=== PATIENT | female | born 1950 | race Two or more races ===

== ENCOUNTER 2016-07-29 22:44 | Inpatient (IN) | payer BC ==
[~2016-07-29] VITALS: Ht 162.6 cm; Wt 98.4 kg
[2016-07-29] MEDS ORDERED: LORAZEPAM INJ 2 MG/ML VIAL ONE (22:51)
[2016-07-29] MEDS ORDERED: ASPIRIN 81 MG TAB.CHEW PO ONE (23:00)
[2016-07-29] MEDS ORDERED: LORAZEPAM INJ 2 MG/ML VIAL IV ONE (23:00)
--- NOTE | 2016-07-29 23:06 | NUR ---
CALLED [facility]ER[facility] ELLIOTT FOR EKG FROM PREVIOUS VISIT
[2016-07-29 23:08] LABS: BASOPHILS % (AUTO) 0.3 % (0.0-2.0); EOSINOPHILS # (AUTO) 0.1 /CMM (0.0-0.7); EOSINOPHILS % (AUTO) 1.5 % (0.0-6.0); HEMATOCRIT 40 % (33-45); HEMOGLOBIN 13.4 g/dL (11.5-14.8); LYMPHOCYTES # (AUTO) 2.2 /CMM (0.8-4.8); LYMPHOCYTES % (AUTO) 28.4 % (20.0-44.0); MEAN CORPUSCULAR HEMOGLOBIN 31 PG (26.0-33.0); MEAN CORPUSCULAR HGB CONC 34 g/dl (31.0-36.0); MEAN CORPUSCULAR VOLUME 91 fL (82-100); MONOCYTES # (AUTO) 0.5 /CMM (0.1-1.30); MONOCYTES % (AUTO) 6.3 % (2.0-12.0); NEUTROPHILS # (AUTO) 4.9 /CMM (1.8-8.9); NEUTROPHILS % (AUTO) 63.5 % (43.0-81.0); PLATELET COUNT (AUTO) 249 /CMM (150-450); RED BLOOD CELL COUNT(AUTO) 4.37 MIL/uL (4.0-5.2); WHITE BLOOD COUNT (AUTO) 7.8 K/uL (4.3-11.0)
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
[2016-07-29 23:19] LABS: CALCIUM, SERUM 8.6 mg/dL (8.5-10.1); CARBON DIOXIDE 26 mmol/L (21-32); CHLORIDE 104 mmol/L (98-107); CREATININE 1.2 mg/dL (0.6-1.3); GFR 45 mL/min (>60); GLUCOSE 188 mg/dL (74-106); POTASSIUM 3.6 mmol/L (3.5-5.1); SODIUM SERUM 141 mmol/L (136-145); UREA NITROGEN, BLOOD 23 mg/dL (7-18)
--- NOTE | 2016-07-29 23:20 | NUR ---
SPOKE WITH [facility] AT [facility] RELEASE OF MEDICAL RECORDS WAITING FOR CONFIRMATION ON RECEIPT OF FAX
[2016-07-29 23:25] LABS: TROPONIN I < 0.017 ng/mL (0.00-0.056)
--- NOTE | 2016-07-29 23:30 | NUR ---
SPOKE WITH PAR[facility] AT [facility] FOR REQUEST OF MEDICAL RECORDS, RELEASE FAXED OVER AND WAITING FOR FAX BACK
--- NOTE | 2016-07-29 23:58 | NUR ---
CALLED [facility] MEDICAL RECORDS BACK WAS ADVISED [facility] IS CURRENTLY FAXING EKG OVER
--- NOTE | 2016-07-30 02:00 | NUR ---
PT RESTING IN ER BED, NAD NOTED, PT IS ON GARMENT FINISHER, WILL CONTINUE TO MONITOR
[2016-07-30] MEDS ORDERED: UNABLE TO RECALL MED (03:37)
[2016-07-30] MEDS ORDERED: ACETAMINOPHEN 325 MG TABLET PO PRN (04:00)
[2016-07-30] MEDS ORDERED: LORAZEPAM 1 MG TABLET PO PRN (04:00)
[2016-07-30] MEDS ORDERED: NITROGLYCERIN 0.4 MG/TAB BOTTLE SL PRN (04:00)
[2016-07-30] MEDS ORDERED: DOCUSATE SODIUM 100 MG CAPSULE PO PRN (04:00)
[2016-07-30] MEDS ORDERED: MORPHINE SULFATE INJ 2 MG/ML DISP.SYRIN IV PRN ×2 (04:00)
--- NOTE | 2016-07-30 04:00 | NUR ---
REPORT GIVEN TO MEDICAL ILLUSTRATOR FOR NICOLE
[2016-07-30 04:05] VITALS: BP 127/59
--- NOTE | 2016-07-30 04:21 | NUR ---
TELE/RN NOTE: ADMITTED FROM ER, PATIENT STATED, " I HAVE HIGH BLOOD PRESSURE." PATIENT LIVES ALONE, AWAKE, ALERT, ORIENTED X3, DENIES ANY CHEST DISCOMFORT AT THIS TIME, NO APPARENT DISTRESS NOTED. RESPIRATION EVEN, BREATHING PATTERN NON-LABORED, VITALS 129/70, 59, 20, 975 ROOM AIR, 98.6. SKIN WARM, DRY AND INTACT. NO SWELLING NOTED. LAST BOWEL MOVEMENT 07/29, VOIDING FREELY, AMBULATORY. 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 SON WILL BRING MEDICATION LIST IN AM. WILL CONTINUE TO MONITOR.
--- NOTE | 2016-07-30 06:39 | NUR ---
MS/RN NOTE: PATIENT'S SON CALLED, REMINDED HIM TO BRING PATIENT LIST OF MEDICATIONS.
--- NOTE | 2016-07-30 07:30 | NUR ---
LABORATORY ENGINEER OPENING RECEIVED PATIENT A/OX4 DENIES PAIN, SOB, DIFFICULTY BREATHING. PATIENT STATES SHE WANTS TO GO HOME TODAY AND FEELS BETTER. PATIENT UNDERSTANDING THAT FOOD AND BEVERAGE LEAD NEEDS TO CLEAR HER FOR D/C. PATIENT STATES NO OTHER NEEDS AND STABLE AT THIS TIME. TELE SINUS WITH BBB. PATIENT WITH CALL LIGHT IN REACH,BED LOWERED AND LOCKED, RAILS UPX2 FOR SAFETY AND WILL ROUND Q2H OR LESS PER NEEDS
[2016-07-30 08:00] VITALS: BP_SYST 131; BP_SYST 132; BP_DIAS 82
[2016-07-30] MEDS ORDERED: ATEN50TA PO (08:27)
[2016-07-30] MEDS ORDERED: VALS80TA2 PO (08:27)
[2016-07-30] MEDS ORDERED: ASPIRIN 81 MG TAB.CHEW PO SCH (09:00)
[2016-07-30] MEDS ORDERED: CARVEDILOL 6.25 MG TABLET PO SCH (09:00)
[2016-07-30 09:16] VITALS: BP 132/82
--- NOTE | 2016-07-30 10:05 | NUR ---
MS RN NOTES PATIENT AMBULATED WITH NO COMPLICATIONS PER DR GARCIA ORDER. PER DR SHEA GO OK TO DC PATIENT AND PUT IN DC ORDER. ORDER ADDED PER
[2016-07-30 11:09] LABS: THYROID STIMULATING HORMONE 0.556 uIU/mL (0.358-3.74)
[2016-07-30 11:41] LABS: PHOSPHORUS 3.6 mg/dL (2.5-4.9)
--- NOTE | 2016-07-30 11:55 | NUR ---
MS ROLL MILL OPERATOR PATIENT STABLE NO COMPLICATIONS NO CHANGES. PATIENT EDUCATED ON DC MATERIAL AND STATED UNDERSTANDING. DISCHARGED PER MD. ALL BELONGINGS ACCOUNTED FOR AND SIGNED. PATIENT ASSISTED TO CAR BY STAFF AND SON IN STABLE CONDITION. IV REMOVED PRESSURE AND DRESSING APPLIED NO BLEEDING NOTED.
[2016-07-30] MEDS ORDERED: LIDOCAINE 2% JEL UROJET 10 ML MM ONE (12:00)
[2016-07-30] MEDS ORDERED: ASPI81TA2 PO (12:06)
[2016-07-30] MEDS ORDERED: SIMVASTATIN 20 MG TABLET PO SCH (22:00)
== END 2016-07-30 11:55 | disposition home or self-care (01) | DRG 303 ==
LOC: ER 22:47 → TELE 07-30 03:28 → MED 07-30 10:44
PROVIDERS: ADMIT Internal Medicine; ATTEND Internal Medicine
DX: I25.10 Atherosclerotic heart disease of native coronary artery without angina pectoris (principal); E78.5 Hyperlipidemia, unspecified; E66.01 Morbid (severe) obesity due to excess calories; I10 Essential (primary) hypertension; G47.33 Obstructive sleep apnea (adult) (pediatric); G25.81 Restless legs syndrome; E11.9 Type 2 diabetes mellitus without complications; Z68.37 Body mass index [BMI] 37.0-37.9, adult
CPT/HCPCS: 36415; 71010-TC; 80048-TC; 80061-TC; 82306; 83735-TC; 84100-TC; 84439-TC; 84443-TC; 84484-TC; 85025-TC; 87081-TC; A4606; J2060; J3490; Z7610

== ENCOUNTER 2016-09-07 06:19 | Emergency (ER) | payer BC ==
[~2016-09-07] VITALS: Ht 152.4 cm; Wt 90.7 kg
[~2016-09-07 06:19] MED LIST: ASPI81TA2 PO; ATEN50TA PO; VALS80TA2 PO
--- NOTE | 2016-09-07 06:43 | NUR ---
PT PRESENTED TO THE ER AFTER WAKING UP WITH HIGH BP THIS MORNING. PT TOOK ALL HER MEDICATIONS AND FELT THAT SHE SHOULD GO TO THE ER. PT'S BP IS WNL. PT IS AA&O X4. PT AMBULATED TO BED #[address]Y GAIT. [address]. SORIA IS AT THE BEDSIDE.
--- NOTE | 2016-09-07 06:59 | NUR ---
Patient discharged to home in stable condition. Written and verbal after care instructions given. Patient verbalizes understanding of instruction. PT AMBULATED OUT WITH A STEADY GAIT. VSS.
[2016-09-07 07:00] VITALS: BP 145/75
== END 2016-09-07 07:01 | disposition home or self-care (01) ==
LOC: ER 06:23
DX: I10 Essential (primary) hypertension (principal); Z79.82 Long term (current) use of aspirin; F41.0 Panic disorder [episodic paroxysmal anxiety]
CPT/HCPCS: A4606; Z7610

== ENCOUNTER 2016-12-12 10:55 | Emergency (ER) | payer MEDICARE, BC ==
[~2016-12-12] VITALS: Ht 157.5 cm; Wt 90.7 kg
--- NOTE | 2016-12-12 11:05 | NUR ---
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 NOW NO CP, PRESSURE, OR HTN. VSS. NAD NOTED. SKIN WARM NONDIAPHORETIC. RESP EVEN UNLABORED. AMBULATORY WITH STEADY GAIT. IN ER BED 08.
[2016-12-12 11:57] LABS: BASOPHILS # (AUTO) 0.1 /CMM (0.0-0.2); BASOPHILS % (AUTO) 0.8 % (0.0-2.0); EOSINOPHILS # (AUTO) 0.1 /CMM (0.0-0.7); EOSINOPHILS % (AUTO) 1.1 % (0.0-6.0); HEMATOCRIT 40 % (33-45); HEMOGLOBIN 13.2 g/dL (11.5-14.8); LYMPHOCYTES # (AUTO) 1.6 /CMM (0.8-4.8); LYMPHOCYTES % (AUTO) 20.3 % (20.0-44.0); MEAN CORPUSCULAR HEMOGLOBIN 31 PG (26.0-33.0); MEAN CORPUSCULAR HGB CONC 33 g/dl (31.0-36.0); MEAN CORPUSCULAR VOLUME 92 fL (82-100); MONOCYTES # (AUTO) 0.6 /CMM (0.1-1.30); MONOCYTES % (AUTO) 7.6 % (2.0-12.0); NEUTROPHILS # (AUTO) 5.3 /CMM (1.8-8.9); NEUTROPHILS % (AUTO) 70.2 % (43.0-81.0); PLATELET COUNT (AUTO) 262 /CMM (150-450); RDW COEFFICIENT OF VARIATION 11.4 (11.5-15.0); RED BLOOD CELL COUNT(AUTO) 4.32 MIL/uL (4.0-5.2); WHITE BLOOD COUNT (AUTO) 7.7 K/uL (4.3-11.0)
[2016-12-12 12:14] LABS: TROPONIN I < 0.017 ng/mL (0.00-0.056)
[2016-12-12 12:26] LABS: CALCIUM, SERUM 8.8 mg/dL (8.5-10.1); CARBON DIOXIDE 26 mmol/L (21-32); CHLORIDE 107 mmol/L (98-107); CREATININE 0.7 mg/dL (0.6-1.3); GLUCOSE 90 mg/dL (74-106); POTASSIUM 4.4 mmol/L (3.5-5.1); SODIUM SERUM 142 mmol/L (136-145); UREA NITROGEN, BLOOD 16 mg/dL (7-18)
[2016-12-12 12:31] LABS: ALANINE AMINOTRANSFERASE 31 U/L (12-78); ALBUMIN 3.6 g/dL (3.4-5.0); ALKALINE PHOSPHATASE 72 U/L (46-116); ASPARTATE AMINOTRANSFERASE 25 U/L (15-37); BILIRUBIN,DIRECT 0.1 mg/dL (0.0-0.2); BILIRUBIN,TOTAL 0.3 mg/dL (0.2-1.0); TOTAL PROTEIN, SERUM 6.9 g/dL (6.4-8.2)
[2016-12-12 13:26] VITALS: BP 124/64
--- NOTE | 2016-12-12 13:26 | NUR ---
Patient discharged to home in stable condition. Written and verbal after care instructions given. Patient verbalizes understanding of instruction. AMBULATORY WITH STEADY GAIT. NAD NOTED.
== END 2016-12-12 13:27 | disposition home or self-care (01) ==
LOC: ER 10:57
DX: R07.9 Chest pain, unspecified (principal); I10 Essential (primary) hypertension; F41.0 Panic disorder [episodic paroxysmal anxiety]; Z79.82 Long term (current) use of aspirin
CPT/HCPCS: 36415; 80048; 80076; 84484; 85025; 93005; 99285; A4606; Z7610

== ENCOUNTER 2017-03-29 20:50 | Emergency (ER) | payer MEDICARE, BC ==
[~2017-03-29] VITALS: Ht 157.5 cm; Wt 100.2 kg
[~2017-03-29 20:50] MED LIST changes: +ASPI-1169 PO; -ASPI81TA2 PO
--- NOTE | 2017-03-29 21:05 | NUR ---
PT TRIAGED AND THEN AMBULATED TO THE BATHROOM WITH A STEADY GAIT. URINE SAMPLE OBTAINED AND SENT TO LAB. PT THEN AMBULATED TO BED #6. PT WAS PLACED ON THE MONITOR, 20G IV STARTED IN LAC. BLOOD WAS DRAWN AND SENT TO LAB. PT PLACED IN A GOWN. PT'S SON IS AT THE BEDSIDE. PT STATED THAT SHE HAS HAD A BAND OF PRESSURE/TIGHTNESS ACROSS THE UPPER ABD/EPIGASTRIC AREA X3 DAYS. PT STATED THAT HER BP WAS ELEVATED AT HOME. PT TOOK 1/2 XANAX, 325 MG ASPIRIN AND AMLODIPINE LIBRARY CLERICAL ASSISTANT. PT'S BP IS 158/95 NOW. PT IS AA&O X4. RESP EVEN AND UNLABORED.
[2017-03-29 21:12] LABS: BASOPHILS # (AUTO) 0.1 /CMM (0.0-0.2); BASOPHILS % (AUTO) 0.5 % (0.0-2.0); EOSINOPHILS # (AUTO) 0.1 /CMM (0.0-0.7); EOSINOPHILS % (AUTO) 1.1 % (0.0-6.0); HEMATOCRIT 43 % (33-45); HEMOGLOBIN 14.8 g/dL (11.5-14.8); LYMPHOCYTES # (AUTO) 3.5 /CMM (0.8-4.8); LYMPHOCYTES % (AUTO) 33.9 % (20.0-44.0); MEAN CORPUSCULAR HEMOGLOBIN 31 PG (26.0-33.0); MEAN CORPUSCULAR HGB CONC 34 g/dl (31.0-36.0); MEAN CORPUSCULAR VOLUME 91 fL (82-100); MONOCYTES # (AUTO) 0.8 /CMM (0.1-1.30); MONOCYTES % (AUTO) 7.4 % (2.0-12.0); NEUTROPHILS # (AUTO) 5.8 /CMM (1.8-8.9); NEUTROPHILS % (AUTO) 57.1 % (43.0-81.0); PLATELET COUNT (AUTO) 311 /CMM (150-450); RDW COEFFICIENT OF VARIATION 11.6 (11.5-15.0); RED BLOOD CELL COUNT(AUTO) 4.78 MIL/uL (4.0-5.2); WHITE BLOOD COUNT (AUTO) 10.3 K/uL (4.3-11.0)
--- NOTE | 2017-03-29 21:16 | NUR ---
CXR IN PROGRESS AT THE BEDSIDE.
[2017-03-29 21:26] LABS: CALCIUM, SERUM 9.5 mg/dL (8.5-10.1); CARBON DIOXIDE 29 mmol/L (21-32); CHLORIDE 103 mmol/L (98-107); CREATININE 0.7 mg/dL (0.6-1.3); GLUCOSE 159 mg/dL (74-106); POTASSIUM 3.4 mmol/L (3.5-5.1); SODIUM SERUM 138 mmol/L (136-145); UREA NITROGEN, BLOOD 16 mg/dL (7-18)
[2017-03-29 21:28] LABS: INR 0.99 (0.87-1.13); PROTHROMBIN TIME 10.3 SECS (9.5-12.7)
[2017-03-29 21:35] LABS: TROPONIN I < 0.017 ng/mL (0.00-0.056)
--- NOTE | 2017-03-29 22:17 | NUR ---
PT APPEARS TO BE RESTING COMFORTABLY. RESP EVEN AND UNLABORED. VSS. PT DENIES PAIN AT THIS TIME. WILL CONTINUE TO MONITOR THE PT.
[2017-03-29 22:39] LABS: ALBUMIN 4.5 g/dL (3.4-5.0); BILIRUBIN,DIRECT 0.1 mg/dL (0.0-0.2); BILIRUBIN,TOTAL 0.4 mg/dL (0.2-1.0); TOTAL PROTEIN, SERUM 8.1 g/dL (6.4-8.2)
[2017-03-29] MEDS ORDERED: ASPIRIN 81 MG TAB.CHEW PO ONE (23:00)
--- NOTE | 2017-03-29 23:08 | NUR ---
IV removed. Catheter intact and site benign. Pressure and 4x4 applied to site. No bleeding noted.Patient discharged to home in stable condition. Written and verbal after care instructions given. Patient verbalizes understanding of instruction. PT REC'D A COPY OF ALL IMAGING AND LABS. PT AMBULATED OUT WITH A STEADY GAIT. VSS.
[2017-03-29 23:09] VITALS: BP 138/83
--- NOTE | 2017-03-29 23:09 | NUR ---
ASPIRIN ORDER CANCELLED BY . PT TOOK 325MG ASPIRIN SERVER MANAGER.
== END 2017-03-29 23:11 | disposition home or self-care (01) ==
LOC: ER 20:51
DX: R07.9 Chest pain, unspecified (principal); I10 Essential (primary) hypertension; M54.2 Cervicalgia; Z98.890 Other specified postprocedural states; Z79.82 Long term (current) use of aspirin
CPT/HCPCS: 36415; 71010; 80048; 80076; 84484; 85025; 85730; 93005; 99285; A4606; Z7610

== ENCOUNTER 2017-04-11 15:48 | Emergency (ER) | payer MEDICARE, BC ==
[~2017-04-11] VITALS: Ht 157.5 cm; Wt 102.1 kg
[2017-04-11] MEDS ORDERED: IBUPROFEN 600 MG TABLET PO ONE ×2 (18:30→19:03)
[2017-04-11] MEDS ORDERED: IV NS 0.9% 250 ML IV ONE (19:22)
[2017-04-11] MEDS ORDERED: IOHEXOL-300 100 ML VIAL IV ONE (19:22)
--- NOTE | 2017-04-11 19:40 | NUR ---
RECEIVED PT FROM ER BED 11. PT SELF PRESENTED TO ED: LEFT SIDE UPPER BODY GARY, PAINFUL RESPIRATIONS S/P GLF ~ ONE WEEK. PT AOX3 RR EVEN AND UNLABORED. NO SOB NOTED. NAD NOTED. NO NVD AT THIS TIME. PT GOWNED AND PLACED ON MONITOR
--- NOTE | 2017-04-11 19:53 | NUR ---
CALLED RADIOLOGY FOR CT F/U
[2017-04-11 19:57] LABS: APPEARANCE,URINE Clear (CLEAR); BILIRUBIN,URINE Negative (NEGATIVE); BLOOD, URINE Small Ery/uL (NEGATIVE); COLOR,URINE Yellow (YELLOW); KETONES,URINE Negative (NEGATIVE); LEUKOCYTE ESTERASE ,URINE Small (NEGATIVE); NITRITE, URINE Negative (NEGATIVE); PH,URINE 5.5 (5.0-8.0); PROTEIN,URINE Negative (NEGATIVE); UGLUCOSE Negative (NEGATIVE); UROBILINOGEN,URINE 0.2 EU/dL (0.2)
--- NOTE | 2017-04-11 20:00 | NUR ---
PT TO CT.
[2017-04-11 20:01] LABS: CALCIUM, SERUM 9.6 mg/dL (8.5-10.1); CREATININE 0.7 mg/dL (0.6-1.3)
--- NOTE | 2017-04-11 20:10 | NUR ---
PT RETURNED FROM CT.
[2017-04-11 20:16] LABS: BACTERIA,URINE Few /HPF (None Seen); SQUAMOUS EPITHELIAL CELL,UR Few /HPF (None Seen)
[2017-04-11 20:53] LABS: BASOPHILS % (AUTO) 0.3 % (0.0-2.0); EOSINOPHILS # (AUTO) 0.1 /CMM (0.0-0.7); EOSINOPHILS % (AUTO) 1.1 % (0.0-6.0); HEMATOCRIT 40 % (33-45); LYMPHOCYTES # (AUTO) 2.5 /CMM (0.8-4.8); LYMPHOCYTES % (AUTO) 24.4 % (20.0-44.0); MEAN CORPUSCULAR HEMOGLOBIN 32 PG (26.0-33.0); MEAN CORPUSCULAR HGB CONC 35 g/dl (31.0-36.0); MEAN CORPUSCULAR VOLUME 90 fL (82-100); MONOCYTES # (AUTO) 0.6 /CMM (0.1-1.30); MONOCYTES % (AUTO) 6.3 % (2.0-12.0); NEUTROPHILS % (AUTO) 67.9 % (43.0-81.0); PLATELET COUNT (AUTO) 299 /CMM (150-450); RDW COEFFICIENT OF VARIATION 11.5 (11.5-15.0); RED BLOOD CELL COUNT(AUTO) 4.45 MIL/uL (4.0-5.2); WHITE BLOOD COUNT (AUTO) 10.2 K/uL (4.3-11.0)
--- NOTE | 2017-04-11 22:32 | NUR ---
ARCADIO MCKINNEY SPEAKING TO PT REGARDING RESULTS
--- NOTE | 2017-04-11 22:34 | NUR ---
IV removed. Catheter intact and site benign. Pressure and 4x4 applied to site. No bleeding noted. Patient discharged to home in stable condition. Written and verbal after care instructions given. Patient verbalizes understanding of instruction. ambulatory with a steady gait
[2017-04-11 22:45] VITALS: BP 146/67
== END 2017-04-11 22:47 | disposition home or self-care (01) ==
LOC: ER 15:49
DX: S20.212A Contusion of left front wall of thorax, initial encounter (principal); I10 Essential (primary) hypertension; Z98.890 Other specified postprocedural states; Z79.82 Long term (current) use of aspirin; W10.8XXA Fall (on) (from) other stairs and steps, initial encounter; Y93.01 Activity, walking, marching and hiking; Y92.89 Other specified places as the place of occurrence of the external cause; Y99.8 Other external cause status
CPT/HCPCS: 36415; 71100-TC; 71260-TC; 80048-TC; 81000-TC; 85025-TC; 87086-TC; A4606; J7050; Q9967; Z7610

== ENCOUNTER 2018-11-08 22:41 | Emergency (ER) | payer MEDICARE, BC ==
[~2018-11-08] VITALS: Ht 165.1 cm; Wt 77.1 kg
[2018-11-08 22:45] VITALS: BP 141/80
[2018-11-08] MEDS ORDERED: LIDOCAINE 1%-EPI 1:100,000 20 ML VIAL ONE (23:29)
[2018-11-08] MEDS ORDERED: TDAP [DIPH/PERTUSSIS/TET] 0.5 ML VIAL IM ONE (23:30)
[2018-11-09] MEDS ORDERED: TDAP [DIPH/PERTUSSIS/TET] 0.5 ML VIAL IM ONE (00:01)
[2018-11-09] MEDS ORDERED: GELATIN SPONGE,ABSORBABLE 1 SPONGE SPONGE TP ONE (02:07)
== END 2018-11-09 01:29 | disposition home or self-care (01) ==
LOC: ER 22:45
DX: S91.011A Laceration without foreign body, right ankle, initial encounter (principal); I10 Essential (primary) hypertension; G62.9 Polyneuropathy, unspecified; Z98.890 Other specified postprocedural states; Z79.82 Long term (current) use of aspirin; Z79.899 Other long term (current) drug therapy; W20.8XXA Other cause of strike by thrown, projected or falling object, initial encounter; Y93.E8 Activity, other personal hygiene; Y92.89 Other specified places as the place of occurrence of the external cause; Y99.8 Other external cause status
CPT/HCPCS: 12001; 73610; 90471; 90715; 99283; A6403; J3490

== ENCOUNTER 2018-11-11 13:20 | Emergency (ER) | payer MEDICARE, BC ==
[~2018-11-11] VITALS: Ht 162.6 cm; Wt 92.5 kg
[2018-11-11 13:28] VITALS: BP 126/61
== END 2018-11-11 15:23 | disposition home or self-care (01) ==
LOC: ER 13:23
DX: S91.011D Laceration without foreign body, right ankle, subsequent encounter (principal); I10 Essential (primary) hypertension; G62.9 Polyneuropathy, unspecified; Z98.890 Other specified postprocedural states; Z79.82 Long term (current) use of aspirin; Z79.899 Other long term (current) drug therapy; X58.XXXD Exposure to other specified factors, subsequent encounter

== ENCOUNTER 2018-11-25 19:07 | Emergency (ER) | payer MEDICARE, BC ==
[~2018-11-25] VITALS: Ht 152.4 cm; Wt 93.4 kg
--- NOTE | 2018-11-25 19:34 | NUR ---
BIBS FOR SUTURE REMOVAL ON R INNER ANKLE . SUTURES REMAINED INTACT.
--- NOTE | 2018-11-25 19:54 | NUR ---
SUTURES D/C'D BY JORDAN SNYDER PAC AT THE BED SIDE. NO BLEEDING NOTED. AREA COVERED W/ BANDAID.
[2018-11-25 19:55] VITALS: BP 125/71
--- NOTE | 2018-11-25 19:55 | NUR ---
Patient discharged to home in stable condition. Written and verbal after care instructions given. Patient verbalizes understanding of instruction.
== END 2018-11-25 19:55 | disposition home or self-care (01) ==
LOC: ER 19:09
DX: S91.011D Laceration without foreign body, right ankle, subsequent encounter (principal); I10 Essential (primary) hypertension; G62.9 Polyneuropathy, unspecified; Z98.890 Other specified postprocedural states; Z79.82 Long term (current) use of aspirin; Z79.899 Other long term (current) drug therapy; X58.XXXD Exposure to other specified factors, subsequent encounter

== ENCOUNTER 2019-01-17 05:29 | Emergency (ER) | payer MEDICARE, BC ==
[~2019-01-17] VITALS: Ht 160 cm; Wt 84.4 kg
--- NOTE | 2019-01-17 05:45 | NUR ---
PT BIBS. C/O "FEELING WEIRD. UNCOMFORTABLE. HAVING ABD PRESSURE" PER PT "I FEEL THAT MY CHEST IS TIGHT FOR THE PAST COUPLE DAYS, IT COMES ON AND OFF" PT AAOX4.
[2019-01-17] MEDS ORDERED: LORAZEPAM 1 MG TABLET ONE (05:49)
[2019-01-17] MEDS: LORAZEPAM 1 MG TABLET PO ONE (05:52)
--- NOTE | 2019-01-17 06:16 | NUR ---
PT BROUGHT BY RADIOLOGY TO CT
[2019-01-17] MEDS ORDERED: PANTOPRAZOLE 40 MG VIAL ONE (06:27)
[2019-01-17] MEDS ORDERED: ONDANSETRON HCL/PF 4 MG/2 ML VIAL ONE (06:27)
--- NOTE | 2019-01-17 06:30 | NUR ---
URINE COLLECTED AND SENT TO LAB
[2019-01-17] MEDS: IV NS 0.9% 1,000 ML BAG IV ONE (06:55)
[2019-01-17] MEDS: PANTOPRAZOLE 40 MG VIAL IV ONE (06:57)
[2019-01-17 07:06] LABS: BASOPHILS % (AUTO) 0.6 % (0.0-2.0); EOSINOPHILS % (AUTO) 1.1 % (0.0-6.0); HEMATOCRIT 41 % (33-45); HEMOGLOBIN 13.9 g/dL (11.5-14.8); LYMPHOCYTES # (AUTO) 1.4 /CMM (0.8-4.8); LYMPHOCYTES % (AUTO) 18.8 % (20.0-44.0); MEAN CORPUSCULAR HGB CONC 34 g/dl (31.0-36.0); MEAN CORPUSCULAR VOLUME 91 fL (82-100); MONOCYTES # (AUTO) 0.5 /CMM (0.1-1.30); MONOCYTES % (AUTO) 6.4 % (2.0-12.0); NEUTROPHILS # (AUTO) 5.6 /CMM (1.8-8.9); NEUTROPHILS % (AUTO) 73.1 % (43.0-81.0); PLATELET COUNT (AUTO) 240 /CMM (150-450); RED BLOOD CELL COUNT(AUTO) 4.51 MIL/uL (4.0-5.2); WHITE BLOOD COUNT (AUTO) 7.7 K/uL (4.3-11.0)
[2019-01-17] MEDS: ONDANSETRON HCL/PF 4 MG/2 ML VIAL IVP ONE (07:07)
[2019-01-17 07:24] LABS: APPEARANCE,URINE SL CLOUDY (CLEAR); BILIRUBIN,URINE NEGATIVE (NEGATIVE); BLOOD, URINE SMALL Ery/uL (NEGATIVE); COLOR,URINE YELLOW (YELLOW); KETONES,URINE NEGATIVE (NEGATIVE); LEUKOCYTE ESTERASE ,URINE TRACE (NEGATIVE); NITRITE, URINE NEGATIVE (NEGATIVE); PROTEIN,URINE TRACE mg/dl (NEGATIVE); UGLUCOSE NEGATIVE (NEGATIVE); UROBILINOGEN,URINE 0.2 EU/dL (0.2)
[2019-01-17 07:26] LABS: CALCIUM, SERUM 9.2 mg/dL (8.5-10.1); CREATININE 0.8 mg/dL (0.6-1.3); POTASSIUM 3.9 mmol/L (3.5-5.1)
--- NOTE | 2019-01-17 07:31 | NUR ---
ASSESSED PT ON BED, AAOX4, NOT IN RESPIRATORY DISTRESS, V/S STABLE, KEPT RESTED AND COMFORTALBLE, AWAITING LAB RESULTS.
[2019-01-17 07:40] LABS: ALBUMIN 3.9 g/dL (3.4-5.0); BILIRUBIN,DIRECT 0.1 mg/dL (0.0-0.2); BILIRUBIN,TOTAL 0.2 mg/dL (0.2-1.0); TOTAL PROTEIN, SERUM 7.5 g/dL (6.4-8.2)
[2019-01-17 07:41] LABS: BACTERIA,URINE Many /HPF (None Seen); SQUAMOUS EPITHELIAL CELL,UR Many /HPF (None Seen)
--- NOTE | 2019-01-17 07:41 | NUR ---
REPORT GIVEN TO STEWART COSBY FOR NICOLE
[2019-01-17] MEDS ORDERED: CEPHALEXIN MONOHYDRATE 500 MG CAPSULE PO ONE (07:55)
[2019-01-17] MEDS: CEPHALEXIN MONOHYDRATE 500 MG CAPSULE PO ONE (07:57)
[2019-01-17 08:47] VITALS: BP 119/72
--- NOTE | 2019-01-17 08:47 | NUR ---
IV removed. Catheter intact and site benign. Pressure and 4x4 applied to site. No bleeding noted. Patient discharged to home in stable condition. Written and verbal after care instructions given. Patient verbalizes understanding of instruction.
== END 2019-01-17 08:48 | disposition home or self-care (01) ==
LOC: ER 05:31
DX: N39.0 Urinary tract infection, site not specified (principal); I10 Essential (primary) hypertension; R10.30 Lower abdominal pain, unspecified; G62.9 Polyneuropathy, unspecified; Z98.890 Other specified postprocedural states; Z79.82 Long term (current) use of aspirin; Z79.899 Other long term (current) drug therapy
CPT/HCPCS: 36415; 71045; 74176; 80048; 80076; 81001; 83690; 85025; 87086; 93005; 96374; 99284; C9113; J7030; 81000-TC; J2405

== ENCOUNTER 2019-03-29 03:50 | Emergency (ER) | payer MEDICARE, BC ==
[~2019-03-29] VITALS: Ht 152.4 cm; Wt 90.7 kg
--- NOTE | 2019-03-29 04:08 | NUR ---
PT CAME TO ER BED 9 WITH C/O HAVING HIGH BLOOD PRESSURE. PT STATES THAT SHE TOOK AMLODIPINE 2.5MG AND XANAX FOR ANXIETY BEFORE SHE ARRIVED TO THE ER. SHE ALSO STATES SHE WAKES UP AT NIGHT EVERY 5 MINUTES TO URINATE. AAOX4. NO SOB. BREATHING EVENLY AND UNLABORED. NOT IN ANY PAIN. CONNECTED TO MONITOR.
--- NOTE | 2019-03-29 05:02 | NUR ---
AT BEDSIDE FOR EVAL.
[2019-03-29] MEDS ORDERED: FAMOTIDINE (20 MG) 20 MG TABLET ONE (05:20)
[2019-03-29] MEDS ORDERED: MAG HYDROX/AL HYDROX/SIMETH 30 ML UDC ONE (05:20)
--- NOTE | 2019-03-29 05:27 | NUR ---
BLOOD COLLECTED AND SENT TO LAB.
[2019-03-29 05:29] LABS: BASOPHILS % (AUTO) 0.7 % (0.0-2.0); EOSINOPHILS % (AUTO) 1.4 % (0.0-6.0); HEMATOCRIT 39 % (33-45); HEMOGLOBIN 13.6 g/dL (11.5-14.8); LYMPHOCYTES # (AUTO) 1.6 /CMM (0.8-4.8); LYMPHOCYTES % (AUTO) 22.7 % (20.0-44.0); MEAN CORPUSCULAR HGB CONC 35 g/dl (31.0-36.0); MEAN CORPUSCULAR VOLUME 91 fL (82-100); MONOCYTES # (AUTO) 0.5 /CMM (0.1-1.30); NEUTROPHILS # (AUTO) 4.9 /CMM (1.8-8.9); NEUTROPHILS % (AUTO) 68.2 % (43.0-81.0); PLATELET COUNT (AUTO) 236 /CMM (150-450); RED BLOOD CELL COUNT(AUTO) 4.33 MIL/uL (4.0-5.2); WHITE BLOOD COUNT (AUTO) 7.2 K/uL (4.3-11.0)
[2019-03-29] MEDS ORDERED: FAMOTIDINE (20 MG) 20 MG TABLET PO ONE (05:30)
[2019-03-29] MEDS ORDERED: MAG HYDROX/AL HYDROX/SIMETH 30 ML UDC PO ONE (05:30)
[2019-03-29 05:38] LABS: CALCIUM, SERUM 9.4 mg/dL (8.5-10.1); CARBON DIOXIDE 27 mmol/L (21-32); CHLORIDE 105 mmol/L (98-107); CREATININE 0.9 mg/dL (0.6-1.3); GLUCOSE 110 mg/dL (74-106); POTASSIUM 3.8 mmol/L (3.5-5.1); SODIUM SERUM 142 mmol/L (136-145); UREA NITROGEN, BLOOD 24 mg/dL (7-18)
[2019-03-29 05:42] LABS: ALANINE AMINOTRANSFERASE 35 U/L (12-78); ALBUMIN 3.9 g/dL (3.4-5.0); ASPARTATE AMINOTRANSFERASE 21 U/L (15-37); BILIRUBIN,DIRECT 0.1 mg/dL (0.0-0.2)
[2019-03-29 05:55] LABS: ALKALINE PHOSPHATASE 85 U/L (46-116); BILIRUBIN,TOTAL 0.3 mg/dL (0.2-1.0); TOTAL PROTEIN, SERUM 7.4 g/dL (6.4-8.2)
[2019-03-29 05:56] LABS: APPEARANCE,URINE Clear (CLEAR); BILIRUBIN,URINE Negative (NEGATIVE); BLOOD, URINE Small Ery/uL (NEGATIVE); COLOR,URINE Light yellow (YELLOW); KETONES,URINE Negative (NEGATIVE); LEUKOCYTE ESTERASE ,URINE Small (NEGATIVE); NITRITE, URINE Negative (NEGATIVE); PROTEIN,URINE Negative (NEGATIVE); UGLUCOSE Negative (NEGATIVE); UROBILINOGEN,URINE 0.2 EU/dL (0.2)
--- NOTE | 2019-03-29 05:56 | NUR ---
XRAY AT BEDSIDE
[2019-03-29 06:14] LABS: BACTERIA,URINE Many /HPF (None Seen); SQUAMOUS EPITHELIAL CELL,UR Many /HPF (None Seen)
[2019-03-29 07:17] VITALS: BP 113/66
== END 2019-03-29 07:18 | disposition home or self-care (01) ==
LOC: ER 03:51
DX: F41.9 Anxiety disorder, unspecified (principal); I10 Essential (primary) hypertension; N39.0 Urinary tract infection, site not specified; R07.89 Other chest pain; R00.2 Palpitations; G62.9 Polyneuropathy, unspecified; Z98.890 Other specified postprocedural states; Z79.82 Long term (current) use of aspirin; Z79.899 Other long term (current) drug therapy
CPT/HCPCS: 36415; 71045-TC; 80048-TC; 80076-TC; 81000-TC; 83690-TC; 84484-TC; 85025-TC; 87086-TC

== ENCOUNTER 2019-04-08 21:20 | Inpatient (IN) | payer MEDICARE, BC ==
[~2019-04-08] VITALS: Ht 165.1 cm; Wt 89.4 kg
--- NOTE | 2019-04-08 21:40 | NUR ---
C/O INTERMITTENT L SIDED CP WITH SOB SINCE THIS MORNING, HIGH BLOODPRESSURE TOOK ASA 81MG @ 1930 & 2029. TOOK XANAX & AMLODIPINE IN THE WAITING ROOM. PT CURRENTLY REPORTED PAIN IS RESOLVED AND SHE JUST FEEL TIGHTNESS AROUND HER UPPER ABDOMEN. PT IS PLACED ON A MONITOR, VSS. WILL CONT TO MONITOR ,
[2019-04-08 21:54] LABS: BASOPHILS % (AUTO) 0.4 % (0.0-2.0); EOSINOPHILS % (AUTO) 1.1 % (0.0-6.0); HEMATOCRIT 42 % (33-45); HEMOGLOBIN 14.3 g/dL (11.5-14.8); LYMPHOCYTES # (AUTO) 3.1 /CMM (0.8-4.8); LYMPHOCYTES % (AUTO) 39.2 % (20.0-44.0); MEAN CORPUSCULAR HGB CONC 34 g/dl (31.0-36.0); MEAN CORPUSCULAR VOLUME 92 fL (82-100); MONOCYTES # (AUTO) 0.6 /CMM (0.1-1.30); MONOCYTES % (AUTO) 7.1 % (2.0-12.0); NEUTROPHILS # (AUTO) 4.1 /CMM (1.8-8.9); NEUTROPHILS % (AUTO) 52.2 % (43.0-81.0); PLATELET COUNT (AUTO) 278 /CMM (150-450); RED BLOOD CELL COUNT(AUTO) 4.61 MIL/uL (4.0-5.2); WHITE BLOOD COUNT (AUTO) 7.9 K/uL (4.3-11.0)
[2019-04-08 22:05] LABS: CALCIUM, SERUM 9.4 mg/dL (8.5-10.1); CARBON DIOXIDE 25 mmol/L (21-32); CHLORIDE 104 mmol/L (98-107); CREATININE 0.8 mg/dL (0.6-1.3); GLUCOSE 157 mg/dL (74-106); POTASSIUM 3.3 mmol/L (3.5-5.1); SODIUM SERUM 141 mmol/L (136-145); UREA NITROGEN, BLOOD 17 mg/dL (7-18)
--- NOTE | 2019-04-08 23:05 | NUR ---
REPORT GIVEN TO CATALINA ON THIRD FLOOR
--- NOTE | 2019-04-08 23:21 | NUR ---
PT WAS TRANSFERRED TO THIRD FLOOR UNDER ACLS
[2019-04-09] MEDS ORDERED: ATORVASTATIN 10 MG TABLET PO SCH
[2019-04-09 00:22] VITALS: BP 125/70
[2019-04-09] MEDS: PROPRANOLOL HCL 10 MG TABLET PO SCH ×2 (00:45→08:44)
--- NOTE | 2019-04-09 05:12 | NUR ---
ENDING NOTES: admitted last night for DX. chestpain. upon arrival to the floor no c/o chestpain. On the tele monitor SR 79 with BBB. Lying on her left side asleep the monitor shows SB hr 52. Resp even and unlabored. No C/P thru the night. She is pleasent and cooperative.
[2019-04-09 08:00] VITALS: BP 129/86
--- NOTE | 2019-04-09 08:00 | NUR ---
LIGHTING TECHNICIAN AM NOTES Received pt alert and oriented x4.Ambulating along the hallway in and out of the room denying chest pain. On the tele monitor SR 92. Resp even and unlabored. Pt is pleasant and cooperative.Pt is very eager to see the doctor and go home.Explained that she needs to be seen by the bi consultant and hospitalist first.Pt calmed down and watched videos on her cell phone.Call light placed within reach.Will monitor.
[2019-04-09] MEDS: POTASSIUM CHLORIDE 20 MEQ TAB.PRT.SR PO SCH ×2 (08:13→09:23)
[2019-04-09 08:28] LABS: MAGNESIUM 2.3 mg/dL (1.8-2.4); PHOSPHORUS 4.3 mg/dL (2.5-4.9)
[2019-04-09 08:39] LABS: THYROID STIMULATING HORMONE 0.876 uIU/mL (0.358-3.74)
[2019-04-09 08:44] VITALS: BP 129/86
[2019-04-09] MEDS ORDERED: ASPIRIN 81 MG TAB.CHEW PO SCH (09:00)
[2019-04-09] MEDS ORDERED: VALSARTAN 80 MG TABLET PO SCH (09:00)
[2019-04-09] MEDS ORDERED: ATENOLOL 50 MG TABLET PO SCH (09:00)
--- NOTE | 2019-04-09 13:08 | NUR ---
Discharged pt home with stable V/S.Denying any chest pain.Discharge instructions given to follow up with her PMD/[facility] in one week,also to follow low sodium diet.Pt verbalized understanding of instructions given.IV H/L removed to rt arm with no bleeding/swelling noted.
== END 2019-04-09 13:10 | disposition home or self-care (01) | DRG 305 ==
LOC: ER 21:21 → TELE 22:57
PROVIDERS: ADMIT Nurse Practitioner Acute Care; ATTEND Hospitalist
DX: I16.9 Hypertensive crisis, unspecified (principal); D68.59 Other primary thrombophilia; I10 Essential (primary) hypertension; E66.01 Morbid (severe) obesity due to excess calories; K21.9 Gastro-esophageal reflux disease without esophagitis; E87.6 Hypokalemia; F41.9 Anxiety disorder, unspecified; K44.9 Diaphragmatic hernia without obstruction or gangrene; Z90.722 Acquired absence of ovaries, bilateral; Z86.79 Personal history of other diseases of the circulatory system; Z82.49 Family history of ischemic heart disease and other diseases of the circulatory system; Z79.899 Other long term (current) drug therapy; Z79.82 Long term (current) use of aspirin; N28.1 Cyst of kidney, acquired; G25.81 Restless legs syndrome; R73.9 Hyperglycemia, unspecified
CPT/HCPCS: 36415; 71045-TC; 80048-TC; 80061-TC; 83735-TC; 84100-TC; 84439-TC; 84443-TC; 84484-TC; 85025-TC; 87081-TC; 93307-TC; G0378

== ENCOUNTER 2019-06-02 18:56 | Emergency (ER) | payer MEDICARE, BC ==
[~2019-06-02] VITALS: Ht 157.5 cm; Wt 90.7 kg
--- NOTE | 2019-06-02 19:10 | NUR ---
PATIENT C/O SOB, FEELING " FAINT" SINCE YESTERDAY STATES SYSTOLIC B/P OVER 200'S . PATIENT A/OX4, BREATHING EVEN AND UNLABORED, NO SOB NOTED. ON ROOM AIR WITH SPO2 OF 98%. PATIENT ATTACHED TO THE HAND CANDY MOLDER. VITALS STABLE, BP 131/74.
--- NOTE | 2019-06-02 19:20 | NUR ---
REPORT REC'D FROM ALEA TOMLINSON FOR NICOLE.
--- NOTE | 2019-06-02 19:28 | NUR ---
DR MCGUIRE IS AT THE BEDSIDE SPEAKING TO THE PT. PT IS ON THE MONITOR AND CONTINUOUS PUSLE OX. PT'S VSS.
--- NOTE | 2019-06-02 19:46 | NUR ---
REPORT GIVEN TO ALEA FAM FOR NICOLE.
--- NOTE | 2019-06-02 20:46 | NUR ---
Patient discharged to home in stable condition. Written and verbal after care instructions given. Patient verbalizes understanding of instruction.IV removed. Catheter intact and site benign. Pressure and 4x4 applied to site. No bleeding noted.
[2019-06-02 20:47] VITALS: BP 119/67
== END 2019-06-02 20:47 | disposition home or self-care (01) ==
LOC: ER 19:00
DX: F41.9 Anxiety disorder, unspecified (principal); R00.0 Tachycardia, unspecified; I10 Essential (primary) hypertension; E78.5 Hyperlipidemia, unspecified; Z79.82 Long term (current) use of aspirin; Z79.899 Other long term (current) drug therapy; Z90.710 Acquired absence of both cervix and uterus